=== PATIENT | female | born 1970 | race Two or more races ===

== ENCOUNTER 2018-05-10 06:00 | Day surgery (SDC) | payer OTHER ==
[2018-05-10] MEDS ORDERED: CODE1TAB37 PO (11:18)
[2018-05-10] MEDS ORDERED: NAPROXEN500 M1 PO (11:18)
== END 2018-05-10 14:11 | disposition home or self-care (01) ==
LOC: CIR.AMB 06:00
DX: N80.1 Endometriosis of ovary (principal); N80.5 Endometriosis of intestine; N72 Inflammatory disease of cervix uteri; N73.6 Female pelvic peritoneal adhesions (postinfective)

== ENCOUNTER 2023-02-20 08:00 | Inpatient (IN) | payer OTHER ==
[~2023-02-20] VITALS: Ht 157.5 cm; Wt 81.2 kg
[~2023-02-20 08:00] MED LIST: CODE1TAB37 PO; NAPROXEN500 M1 PO
[2023-02-20 09:42] LABS: PH,URINE 5.5 (5.0-8.0); URINE APPEARANCE Cloudy; URINE BILIRRUBIN Negative (NEGATIVE); URINE BLOOD Moderate; URINE COLOR Yellow; URINE GLUCOSE Negative (NEGATIVE); URINE LEUKOCYTE Small; URINE NITRATE Negative; URINE PROTEIN Trace (NEGATIVE); URINE UROBILINOGEN 0.2 E.U./dl
[2023-02-20 09:46] LABS: URINE BACTERIA 705.4 uL (0.0-1933); URINE EPITHELIAL CELLS 31.6 uL (0.0-38.8); URINE RBC 43.8 uL (0.0-20.8); URINE WBC 185.2 uL (0.0-23.2)
[2023-02-20 09:47] LABS: HEMATOCRIT 36.3 % (36.0-45.00); HEMOGLOBIN 12.1 g/dL (12.0-15.00); MEAN CELL VOLUME 85.9 fL (80.00-100.00); MEAN CORPUSCULAR HEMOGLOBIN 28.7 pg (27.00-32.0); MEAN CORPUSCULAR HGB CONC 33.4 g/dl (32.0-36.0); PLATELET COUNT 289 K/uL (150-450); RED BLOOD COUNT 4.22 M/uL (4.00-6.00); RED CELL DISTRIBUTION WIDTH 14.6 % (11.5-14.5)
[2023-02-20 10:43] LABS: INR 1.07; PARTIAL THROMBOPLASTIN TIME 28.7 SECONDS (22.0-34.0); PROTHROMBIN TIME 11.2 SECONDS (9.0-11.5)
[2023-02-20 10:50] LABS: ALBUMIN 4.1 gm/dL (3.4-5.0); BILIRUBIN TOTAL 0.44 mg/dL (0.3-1.2); CALCIUM 9.4 mg/dL (8.5-10.1); CREATININE SERUM 0.73 mg/dL (0.55-1.02); GFR 83.08; GLOBULINA 3.6 G/DL (2.4-3.5); POTASSIUM 4.51 mEq/L (3.5-5.1); TOTAL PROTEIN 7.7 gm/dL (6.4-8.2)
[2023-02-20 11:33] LABS: URINE CRYSTALS FEW /HPF
[2023-02-23 20:24] LABS: HEMATOCRIT 33.1 % (36.0-45.00); HEMOGLOBIN 10.9 g/dL (12.0-15.00); MEAN CELL VOLUME 85.8 fL (80.00-100.00); MEAN CORPUSCULAR HEMOGLOBIN 28.3 pg (27.00-32.0); PLATELET COUNT 253 K/uL (150-450); RED BLOOD COUNT 3.86 M/uL (4.00-6.00); RED CELL DISTRIBUTION WIDTH 14.2 % (11.5-14.5)
[2023-02-24] MEDS ORDERED: TRAM1TAB98 PO (08:51)
[2023-02-24] MEDS ORDERED: IBU600 MG PO (08:51)
== END 2023-02-24 09:37 | disposition home or self-care (01) | DRG 740 ==
LOC: O/R 02-23 05:53 → SURG 02-23 07:00 → OB/GYN 02-23 16:16
PROVIDERS: Surgery; ADMIT Obstetrics & Gynecology; ATTEND Obstetrics & Gynecology
PROC: 0UN04ZZ Release Right Ovary, Percutaneous Endoscopic Approach (ICD-10-PCS; 2023-02-23)
PROC: 0UNG4ZZ Release Vagina, Percutaneous Endoscopic Approach (ICD-10-PCS; 2023-02-23)
PROC: 0DNP4ZZ Release Rectum, Percutaneous Endoscopic Approach (ICD-10-PCS; 2023-02-23)
PROC: 0TJB8ZZ Inspection of Bladder, Via Natural or Artificial Opening Endoscopic (ICD-10-PCS; 2023-02-23)
PROC: 0DJD8ZZ Inspection of Lower Intestinal Tract, Via Natural or Artificial Opening Endoscopic (ICD-10-PCS; 2023-02-23)
PROC: 0UT9FZZ Resection of Uterus, Via Natural or Artificial Opening With Percutaneous Endoscopic Assistance (ICD-10-PCS; principal; 2023-02-23 07:00)
PROC: 0UB04ZZ Excision of Right Ovary, Percutaneous Endoscopic Approach (ICD-10-PCS; 2023-02-23 07:00)
PROC: 0DNN4ZZ Release Sigmoid Colon, Percutaneous Endoscopic Approach (ICD-10-PCS; 2023-02-23 07:00)
DX: C54.1 Malignant neoplasm of endometrium (principal); C79.62 Secondary malignant neoplasm of left ovary; N84.0 Polyp of corpus uteri; D25.1 Intramural leiomyoma of uterus; N80.121 Deep endometriosis of right ovary; N73.6 Female pelvic peritoneal adhesions (postinfective)

== ENCOUNTER 2023-07-18 08:00 | Inpatient (IN) | payer OTHER ==
[~2023-07-18] VITALS: Ht 157.5 cm; Wt 77.1 kg
[~2023-07-18 08:00] MED LIST changes: +IBU600 MG PO; +TRAM1TAB98 PO
[2023-07-18 10:07] LABS: PH,URINE 5.5 (5.0-8.0); URINE APPEARANCE Clear; URINE BILIRRUBIN Negative (NEGATIVE); URINE BLOOD Negative; URINE COLOR Yellow; URINE GLUCOSE Negative (NEGATIVE); URINE LEUKOCYTE Trace; URINE NITRATE Negative; URINE PROTEIN Negative (NEGATIVE); URINE UROBILINOGEN 0.2 E.U./dl
[2023-07-18 10:08] LABS: HEMOGLOBIN 11.9 g/dL (12.0-15.00); MEAN CELL VOLUME 83.6 fL (80.00-100.00); MEAN CORPUSCULAR HEMOGLOBIN 27.6 pg (27.00-32.0); MEAN CORPUSCULAR HGB CONC 32.9 g/dl (32.0-36.0); PLATELET COUNT 302 K/uL (150-450); RED BLOOD COUNT 4.31 M/uL (4.00-6.00); RED CELL DISTRIBUTION WIDTH 15.8 % (11.5-14.5)
[2023-07-18 10:12] LABS: URINE BACTERIA 45.3 uL (0.0-1933); URINE EPITHELIAL CELLS 9.8 uL (0.0-38.8); URINE RBC 5.4 uL (0.0-20.8); URINE WBC 7.5 uL (0.0-23.2)
[2023-07-18 10:37] LABS: INR 1.09; PARTIAL THROMBOPLASTIN TIME 30.5 SECONDS (22.0-34.0); PROTHROMBIN TIME 11.4 SECONDS (9.0-11.5)
[2023-07-18 10:40] LABS: BILIRUBIN TOTAL 0.4 mg/dL (0.3-1.2); CALCIUM 9.8 mg/dL (8.5-10.1); CREATININE SERUM 0.81 mg/dL (0.55-1.02); GFR 73.68; GLOBULINA 3.8 G/DL (2.4-3.5); POTASSIUM 4.59 mEq/L (3.5-5.1); TOTAL PROTEIN 7.8 gm/dL (6.4-8.2)
[2023-07-27] MEDS ORDERED: BUPIVACAINE HCL/PF 0.5% 30ML ML ONE (15:24)
[2023-07-27] MEDS ORDERED: LIDOCAINE HCL 1%/Epi 20ML VIAL IJ ONE (15:24)
[2023-07-27] MEDS ORDERED: CEFOXITIN SODIUM 2,000 MG VIAL IV ONE ×2 (15:24→16:00)
[2023-07-27] MEDS ORDERED: POVIDONE-IODINE 118 ML BOTT TOP ONE ×3 (15:25→16:00)
[2023-07-27] MEDS ORDERED: BUPIVACAINE HCL/PF 0.5% 30ML ML IJ ONE (16:00)
[2023-07-27] MEDS ORDERED: LIDOCAINE HCL/EPINE 1%-Epi 30ML VIAL IJ ONE (16:00)
[2023-07-27] MEDS ORDERED: VISTASEAL DUAL APPICATOR 1 EACH APPL TOP ONE ×2 (18:09→18:30)
[2023-07-27] MEDS ORDERED: THROMBIN,HU/FIBRINOGEN/CALCIUM 4 ML SYRINGE TOP ONE (18:16)
[2023-07-27] MEDS ORDERED: THROMBIN,HU/FIBRINOGEN/CALCIUM 10 ML SYRINGE TOP ONE ×2 (18:30→23:15)
[2023-07-27] MEDS ORDERED: RINGERS SOLUTION,LACTATED 1,000 ML IV SCH (19:45)
[2023-07-27] MEDS ORDERED: OxyCODONE HCL/APAP UD (PERCOCET) PO PRN (19:45)
[2023-07-27] MEDS ORDERED: ONDANSETRON HCL 2 MG/ML VIAL IV PRN (19:45)
[2023-07-27] MEDS ORDERED: MORPHINE SULFATE 4 MG/ML CARTRIDGE IV PRN (19:45)
[2023-07-27] MEDS ORDERED: SIMETHICONE 125 MG CAPSULE PO SCH (21:00)
[2023-07-27] MEDS ORDERED: CEFAZOLIN SODIUM 1,000 MG VIAL IV SCH (21:00)
[2023-07-27] MEDS ORDERED: FAMOTIDINE/PF 20 MG/2 ML VIAL IV PUSH SCH (21:00)
[2023-07-27] MEDS ORDERED: CEFAZOLIN SODIUM 1,000 MG VIAL ONE (21:31)
[2023-07-27] MEDS ORDERED: FAMOTIDINE/PF 20 MG/2 ML VIAL ONE (21:31)
[2023-07-27 23:18] LABS: HEMATOCRIT 36.9 % (36.0-45.00); MEAN CELL VOLUME 84.9 fL (80.00-100.00); MEAN CORPUSCULAR HEMOGLOBIN 27.6 pg (27.00-32.0); MEAN CORPUSCULAR HGB CONC 32.4 g/dl (32.0-36.0); PLATELET COUNT 254 K/uL (150-450); RED BLOOD COUNT 4.34 M/uL (4.00-6.00); RED CELL DISTRIBUTION WIDTH 15.1 % (11.5-14.5)
[2023-07-27 23:28] LABS: ALBUMIN 3.6 gm/dL (3.4-5.0); CREATININE SERUM 0.77 mg/dL (0.55-1.02); GFR 78.12; MAGNESIUM 1.8 mg/dL (1.8-2.4); PHOSPHOROUS 3.8 mg/dL (2.5-4.9); POTASSIUM 3.97 mEq/L (3.5-5.1)
[2023-07-28] MEDS ORDERED: KETOROLAC TROMETHAMINE 30 MG VIAL IM SCH
[2023-07-28 07:29] LABS: HEMATOCRIT 30.8 % (36.0-45.00); HEMOGLOBIN 10.1 g/dL (12.0-15.00); MEAN CELL VOLUME 83.4 fL (80.00-100.00); MEAN CORPUSCULAR HEMOGLOBIN 27.5 pg (27.00-32.0); MEAN CORPUSCULAR HGB CONC 32.9 g/dl (32.0-36.0); PLATELET COUNT 233 K/uL (150-450); RED BLOOD COUNT 3.69 M/uL (4.00-6.00); RED CELL DISTRIBUTION WIDTH 15.6 % (11.5-14.5)
[2023-07-28 07:53] LABS: ALBUMIN 3.1 gm/dL (3.4-5.0); CALCIUM 8.4 mg/dL (8.5-10.1); CREATININE SERUM 0.76 mg/dL (0.55-1.02); GFR 79.31; MAGNESIUM 1.9 mg/dL (1.8-2.4); PHOSPHOROUS 4.8 mg/dL (2.5-4.9); POTASSIUM 3.94 mEq/L (3.5-5.1)
[2023-07-28] MEDS ORDERED: ENOXAPARIN SODIUM 40 MG/0.4 ML SYRINGE SUBCUTANEO SCH (09:00)
== END 2023-07-28 12:09 | disposition home or self-care (01) | DRG 740 ==
LOC: ADM 08:00 → O/R 07-27 07:01 → CIR.AMB 07-27 08:00 → EDSTATUS 07-27 08:00 → OB/GYN 07-27 08:00
PROVIDERS: ADMIT Obstetrics & Gynecology Gynecologic Oncology; ATTEND Obstetrics & Gynecology Gynecologic Oncology
PROC: 0UT04ZZ Resection of Right Ovary, Percutaneous Endoscopic Approach (ICD-10-PCS; 2023-07-27)
PROC: 0UT54ZZ Resection of Right Fallopian Tube, Percutaneous Endoscopic Approach (ICD-10-PCS; 2023-07-27)
PROC: 0DBW4ZZ Excision of Peritoneum, Percutaneous Endoscopic Approach (ICD-10-PCS; 2023-07-27)
PROC: 07BC4ZZ Excision of Pelvis Lymphatic, Percutaneous Endoscopic Approach (ICD-10-PCS; 2023-07-27)
PROC: 0TN64ZZ Release Right Ureter, Percutaneous Endoscopic Approach (ICD-10-PCS; 2023-07-27)
PROC: 0DBU4ZZ Excision of Omentum, Percutaneous Endoscopic Approach (ICD-10-PCS; 2023-07-27)
PROC: 3E1M48X Irrigation of Peritoneal Cavity using Irrigating Substance, Percutaneous Endoscopic Approach, Diagnostic (ICD-10-PCS; 2023-07-27)
PROC: 0UT94ZZ Resection of Uterus, Percutaneous Endoscopic Approach (ICD-10-PCS; principal; 2023-07-27 23:00)
DX: C54.1 Malignant neoplasm of endometrium (principal); C77.5 Secondary and unspecified malignant neoplasm of intrapelvic lymph nodes; C79.11 Secondary malignant neoplasm of bladder; C79.89 Secondary malignant neoplasm of other specified sites; C79.61 Secondary malignant neoplasm of right ovary; C78.5 Secondary malignant neoplasm of large intestine and rectum; C79.82 Secondary malignant neoplasm of genital organs; N80.101 Endometriosis of right ovary, unspecified depth; N80.399 Endometriosis of the pelvic peritoneum, other specified sites, unspecified depth; N83.201 Unspecified ovarian cyst, right side; N80.50 Endometriosis of intestine, unspecified; Z20.822 Contact with and (suspected) exposure to COVID-19